=== PATIENT | female | born 1995 | race Hispanic/Latino ===

== ENCOUNTER 2019-12-25 21:40 | Emergency (ER) | payer SELFPAY ==
[2019-12-25] MEDS ORDERED: LIDOCAINE 1% MPF 5 ML VIAL ONE (22:34)
[2019-12-25] MEDS ORDERED: MORPHINE 4 MG/ML SYR ONE (22:35)
--- NOTE | 2019-12-25 22:59 | EDPHYS ---
Physician Documentation [facility] Name: Norma Schwarz Age: 24 yrs Sex: Female : 1995 Arrival Date: 12/25/2019 Time: 21:51 Bed 16 Private MD: ED Physician Geovanny Garcia HPI: 12/24 22:25 This 24 yrs old Female presents to ER via Ambulatory with complaints of Boil, rn INNER THIGH PAIN. 22:25 The patient presents with an abscess of the left leg. Description: localized, rn erythematous, fluctuant, swollen, warm. Onset: The symptoms/episode began/occurred today. Possible cause(s): unknown. Modifying factors: the symptoms are alleviated by nothing, the symptoms are aggravated by squeezing the lesion and expressing the contents, touching. Severity of symptoms: At their worst the symptoms were moderate, in the emergency department the symptoms are unchanged. The patient has experienced a previous episode. Reports boil, left inner thigh, began today, no drainage, tried to poke it with needle, no fever. Has had once before. . Historical: - Allergies: 22:11 No Known Allergies; sg - Home Meds: 22:11 None [Active]; sg - PMHx: 22:11 None; sg - PSHx: 22:11 None; sg - Immunization history:: Adult Immunizations up to date. - Social history:: Smoking status: Patient denies any tobacco usage or history of. - Family history:: not pertinent. - Hospitalizations: : No recent hospitalization is reported. ROS: 22:25 Constitutional: Negative for fever, chills, and weight loss, MS/Extremity: Negative for rn injury and deformity, Skin: + abscess left inner thigh Exam: 22:25 Constitutional: This is a well developed, well nourished patient who is awake, alert, rn and in no acute distress. MS/ Extremity: Pulses equal, no cyanosis. Left proximal inner thigh with 2cm fluctuance, with surrounding induration Vital Signs: 21:58 BP 138 / 72; Pulse 100; Resp 18; Temp 98.2; Pulse Ox 100% on R/A; Pain 6/10; sg Procedures: 22:56 I \T\ D: Incision and drainage was performed for an abscess of the left left leg Prepped rn with Betadine, Anesthetized with 5 ml's 1% Lidocaine. Incised with #11 blade. Drained small amount purulent fluid. serosanguinous fluid. Packed with iodoform gauze, Dressing: sterile 4x4 gauze, the patient tolerated the procedure well. MDM: 22:04 Patient medically screened. rn 22:56 Differential diagnosis: abscess. Data reviewed: vital signs, nurses notes, and as a rn result, I will discharge patient. Counseling: I had a detailed discussion with the patient and/or guardian regarding: the historical points, exam findings, and any diagnostic results supporting the discharge/admit diagnosis, the need for outpatient follow up, to return to the emergency department if symptoms worsen or persist or if there are any questions or concerns that arise at home. Response to treatment: the patient's symptoms have markedly improved after treatment, and as a result, I will discharge patient. Special discussion: I discussed with the patient/guardian in detail that at this point there is no indication for admission to the hospital. It is understood, however, that if the symptoms persist or worsen the patient needs to return immediately for re-evaluation. 23:01 ED course: pmpaware score 000/000/170/000. rn 12/24 22:15 Order name: Wound Culture rn 12/24 22:15 Order name: Incision \T\ Drainage Setup; Complete Time: 02:20 rn Administered Medications: 22:45 Drug: morphine 4 mg Route: IM; Site: left deltoid; 12/25 02:19 Follow up: Response: No adverse reaction; Pain is decreased 12/24 22:45 Drug: Lidocaine (1 %) 1 vials Volume: 5 ml; Route: Infiltration; 12/25 02:21 Follow up: Response: No adverse reaction 12/24 23:27 Drug: Clindamycin 300 mg Route: PO; 12/25 02:19 Follow up: Response: No adverse reaction; Medication administered at discharge. 12/24 23:28 Drug: Zofran 4 mg Route: IM; Site: left ventrogluteal; 12/25 02:19 Follow up: Response: No adverse reaction; Medication administered at discharge. Disposition: 12/25/19 22:58 Discharged to Home. Impression: Cutaneous abscess of left lower limb. - Condition is Stable. - Discharge Instructions: Skin Abscess, Incision and Drainage. - Prescriptions for Clindamycin HCl 300 mg Oral Capsule - take 1 capsule by ORAL route every 6 hours for 10 days; 40 capsule. Tylenol- Codeine #3 300-30 mg Oral Tablet - take 1 tablet by ORAL route every 6 hours As needed; 15 tablet. - Medication Reconciliation Form, Thank You Letter, Antibiotic Education, Prescription Opioid Use form. - Follow up: Private Physician; When: As needed; Reason: Recheck today's complaints, Re-evaluation by your physician. - Problem is new. - Symptoms have improved. Signatures: Dispatcher [employer] EDMS Yousuf Means RN RN Geovanny Garcia MD MD rn Calcote, Vanessa, RN RN vc Corrections: (The following items were deleted from the chart) 12/24 23:28 22:58 12/25/2019 22:58 Discharged to Home. Impression: Cutaneous abscess of left lower vc limb. Condition is Stable. Forms are Medication Reconciliation Form, Thank You Letter, Antibiotic Education, Prescription Opioid Use. Follow up: Private Physician; When: As needed; Reason: Recheck today's complaints, Re-evaluation by your physician. Problem is new. Symptoms have improved. rn
--- NOTE | 2019-12-25 22:59 | ER ---
Nurse's Notes [facility] Name: Norma Schwarz Age: 24 yrs Sex: Female : 1995 Arrival Date: 12/25/2019 Time: 21:51 Bed 16 Private MD: Diagnosis: Cutaneous abscess of left lower limb Presentation: 12/24 21:58 Acuity: DARIEL 4 sg 21:58 Chief complaint: Patient states: Left Inner thigh has an area that is red swollen and sg painful, pt reports having an abscess that has not drained at this time, denies N/V/D/Fever. Coronavirus screen: Proceed with normal triage. Ebola Screen: Patient negative for fever greater than or equal to 101.5 degrees Fahrenheit, and additional compatible Ebola Virus Disease symptoms Patient denies exposure to infectious person. Patient denies travel to an Ebola-affected area in the 21 days before illness onset. No symptoms or risks identified at this time. Initial Sepsis Screen: Does the patient meet any 2 criteria? No. Patient's initial sepsis screen is negative. Does the patient have a suspected source of infection? Yes: Skin breakdown/wound. Risk Assessment: Do you want to hurt yourself or someone else? Patient reports no desire to harm self or others. Onset of symptoms was December 25, 2019. Care prior to arrival: None. Transition of care: patient was not received from another setting of care. 21:58 Method Of Arrival: Ambulatory sg Triage Assessment: 22:15 General: Appears in no apparent distress. Behavior is calm, cooperative, appropriate vc for age. Historical: - Allergies: 22:11 No Known Allergies; sg - Home Meds: 22:11 None [Active]; sg - PMHx: 22:11 None; sg - PSHx: 22:11 None; sg - Immunization history:: Adult Immunizations up to date. - Social history:: Smoking status: Patient denies any tobacco usage or history of. - Family history:: not pertinent. - Hospitalizations: : No recent hospitalization is reported. Screenin:15 Abuse screen: Denies threats or abuse. Nutritional screening: No deficits noted. vc Tuberculosis screening: No symptoms or risk factors identified. Fall Risk None identified. Assessment: 22:15 General: Appears in no apparent distress. uncomfortable, obese, Behavior is calm, vc cooperative, appropriate for age. Pain: Complains of pain in medial aspect of left thigh Pain currently is 10 out of 10 on a pain scale. Quality of pain is described as pressure, sharp, squeezing. Neuro: Level of Consciousness is awake, alert, obeys commands. Cardiovascular: Capillary refill < 3 seconds Patient's skin is warm and dry. Respiratory: Airway is patent Respiratory effort is even, unlabored, Respiratory pattern is regular, symmetrical. GI: No signs and/or symptoms were reported involving the gastrointestinal system. : No signs and/or symptoms were reported regarding the genitourinary system. Derm: Abscess located on medial aspect of left thigh Reports pain that is 10 out of 10 on a pain scale. Vital Signs: 21:58 BP 138 / 72; Pulse 100; Resp 18; Temp 98.2; Pulse Ox 100% on R/A; Pain 6/10; sg ED Course: 21:51 Patient arrived in ED. cf2 21:58 Triage completed. sg 22:04 Geovanny Garcia MD is Attending Physician. rn 22:11 Arm band placed on. sg 22:45 Assist provider with I \T\ D: of an abscess on left medial upper thigh Set up I\T\D tray. vc Performed by Geovanny Garcia MD Culture sent to lab. Wound packed. iodoform gauze, Dressing with 4X4s, almita wrap Patient tolerated well. 22:50 Patient did not have IV access during this emergency room visit. vc 23:06 Carmela Verma, MANOLO is Primary Nurse. vc Administered Medications: 22:45 Drug: morphine 4 mg Route: IM; Site: left deltoid; vc 12/25 02:19 Follow up: Response: No adverse reaction; Pain is decreased vc 12/24 22:45 Drug: Lidocaine (1 %) 1 vials Volume: 5 ml; Route: Infiltration; vc 12/25 02:21 Follow up: Response: No adverse reaction vc 12/24 23:27 Drug: Clindamycin 300 mg Route: PO; vc 12/25 02:19 Follow up: Response: No adverse reaction; Medication administered at discharge. vc 12/24 23:28 Drug: Zofran 4 mg Route: IM; Site: left ventrogluteal; vc 12/25 02:19 Follow up: Response: No adverse reaction; Medication administered at discharge. vc Outcome: 12/24 22:58 Discharge ordered by . rn 23:25 Discharged to home ambulatory, with significant other. vc 23:25 Condition: good 23:25 Discharge instructions given to patient, significant other, Instructed on discharge instructions, follow up and referral plans. medication usage, Demonstrated understanding of instructions, follow-up care, medications, Prescriptions given X 2. 23:28 Patient left the ED. vc Signatures: Yousuf Means RN RN sg Geovanny Garcia MD MD rn Frazier, Cel[place] cf2 Carmela Verma RN RN vc Corrections: (The following items were deleted from the chart) 22:56 21:58 Chief complaint: Patient states: Left Inner thigh has an area that is red swollen sg and painful, pty reports having an abscess that has not drained at this time, denies N/V/D/Fever sg
[2019-12-25] MEDS ORDERED: ONDANSETRON 4 MG/2 ML VIAL ONE (23:32)
[2019-12-25 23:56] VITALS: BP 138/72; TEMP 98.2; O2SAT 100
== END 2019-12-25 23:28 | disposition home or self-care (01) ==
LOC: ER 21:40
PROC: 0J9P0ZZ Drainage of Left Lower Leg Subcutaneous Tissue and Fascia, Open Approach (ICD-10-PCS; principal; 2019-12-25)
DX: L02.416 Cutaneous abscess of left lower limb (principal)
CPT/HCPCS: 87070; 87205; 96372; 99284; J2405